=== PATIENT | female | born 1955 | race Caucasian/White ===

== ENCOUNTER 2018-12-15 09:14 | Inpatient (IN) | payer OTHER ==
[2018-12-15 09:59] VITALS: BMI 31.1
--- NOTE | 2018-12-15 11:25 | HP ---
CIWA Score Nausea/Vomitin-Mild Nausea/No Vomiting Muscle Tremors: 1-None Visible, but [place] Anxiety: 4-Mod. Anxious/Guarded Agitation: 4-Moderately Restless Paroxysmal Sweats: No Perspiration Orientation: 0-Oriented Tacttile Disturbances: 0-None Auditory Disturbances: 0-None Visual Disturbances: 0-None Headache: 0-None Present CIWA-Ar Total Score: 10 - Admission Criteria OASAS Guidelines: Admission for Medically Managed Detox: Requires at least one of the followin. CIWA greater than 12 2. Seizures within the past 24 hours 3. Delirium tremens within the past 24 hours 4. Hallucinations within the past 24 hours 5. Acute intervention needed for co occurring medical disorder 6. Acute intervention needed for co occurring psychiatric disorder 7. Severe withdrawal that cannot be handled at a lower level of care (continued vomiting, continued diarrhea, abnormal vital signs) requiring intravenous medication and/or fluids 8. Admission ROS [facility] - [facility] Allergies/Adverse Reactions: Allergies Allergy/AdvReac Type Severity Reaction Status Date / Time No Known Allergies Allergy Verified 12/15/18 09:36 History of Present Illness: Search Terms: elda sheriff, 1955 Search Date: 12/15/2018 11:15:28 AM The Drug Utilization Report below displays all of the controlled substance prescriptions, if any, that your patient has filled in the last twelve months. The information displayed on this report is compiled from pharmacy submissions to the Department, and accurately reflects the information as submitted by the pharmacies. This report was requested by: Linette Andre | Reference #: [id number] Others' Prescriptions Patient Name: Elda Sheriff Date: 1955 Address: [address] [place] [address] Sex: Female Rx Written Rx Dispensed Drug Quantity Days Supply Prescriber Name 12/04/2018 12/04/2018 clonazepam 2 mg tablet 90 30 Murphy Muniz MD 12/04/2018 12/04/2018 zolpidem tartrate 10 mg tablet 30 30 Murphy Muniz MD 10/31/2018 11/06/2018 clonazepam 2 mg tablet 90 30 Murphy Muniz MD 10/31/2018 11/06/2018 zolpidem tartrate 10 mg tablet 30 30 Murphy Muniz MD Patient Name: Elda Sheriff Date: 1955 Address: [address] [address] Sex: Female Rx Written Rx Dispensed Drug Quantity Days Supply Prescriber Name 10/03/2018 10/09/2018 clonazepam 2 mg tablet 90 30 Murphy Muniz MD 10/03/2018 10/09/2018 zolpidem tartrate 10 mg tablet 30 30 Murphy Muniz MD 09/05/2018 09/13/2018 clonazepam 2 mg tablet 90 30 Murphy Muniz MD 09/05/2018 09/13/2018 zolpidem tartrate 10 mg tablet 30 30 FurMurphy abbasi MD 08/03/2018 08/14/2018 clonazepam 2 mg tablet 90 30 Murphy Muniz MD 08/03/2018 08/14/2018 zolpidem tartrate 10 mg tablet 30 30 Murphy Muniz MD 07/06/2018 07/17/2018 clonazepam 2 mg tablet 90 30 Murphy Muniz MD 07/06/2018 07/17/2018 zolpidem tartrate 10 mg tablet 30 30 Murphy Muniz MD 06/19/2018 06/19/2018 clonazepam 2 mg tablet 90 30 Murphy Muniz MD 06/19/2018 06/19/2018 zolpidem tartrate 10 mg tablet 30 30 Murphy Muniz MD Patient Name: Elda Sheriff Date: 1955 Address: [address] [place] [address] Sex: Female Rx Written Rx Dispensed Drug Quantity Days Supply Prescriber Name 05/10/2018 05/22/2018 clonazepam 2 mg tablet 90 30 Murphy Muniz MD 05/10/2018 05/22/2018 zolpidem tartrate 10 mg tablet 15 25 Murphy Muniz MD Patient Name: Elda Sheriff Date: 1955 Address: [address] [address] Sex: Female Rx Written Rx Dispensed Drug Quantity Days Supply Prescriber Name 04/11/2018 04/24/2018 alprazolam 2 mg tablet 30 30 Murphy Muniz MD 04/11/2018 04/24/2018 clonazepam 2 mg tablet 90 30 Murphy Muniz MD 04/11/2018 04/24/2018 zolpidem tartrate 10 mg tablet 30 30 Murphy Muniz MD 03/09/2018 03/24/2018 alprazolam 2 mg tablet 30 30 FurerMurphy MD 03/09/2018 03/24/2018 clonazepam 2 mg tablet 90 30 FurerMurphy MD 03/09/2018 03/24/2018 zolpidem tartrate 10 mg tablet 30 30 Furer Murphy MD 02/07/2018 02/23/2018 clonazepam 2 mg tablet 90 30 FurerMurphy MD 02/07/2018 02/23/2018 alprazolam 2 mg tablet 60 30 FurerMurphy MD 02/07/2018 02/23/2018 zolpidem tartrate 10 mg tablet 30 30 Furer Murphy MD 02/14/2018 02/16/2018 oxycodone-acetaminophen 10-325 mg tab 15 8 Quang Hayden () 01/10/2018 01/25/2018 zolpidem tartrate 10 mg tablet 30 30 Furer Murphy MD 01/10/2018 01/25/2018 alprazolam 2 mg tablet 90 30 FurerMurphy MD 12/08/2017 12/27/2017 zolpidem tartrate 10 mg tablet 30 30 Furer Murphy MD 12/08/2017 12/27/2017 alprazolam 2 mg tablet 90 30 FurerMurphy MD * - Drugs marked with an asterisk are compound drugs. If the compound drug is made up of more than one controlled substance, then each controlled pt here requesting detox from bezo use , reports illicit xanax use 5 / day , w/ AH at times , had fall while intoxicated February 2018 . In MMTP " on & off for years " , current daily dose 170 mg @ [facility] , has been there x 8 mo , reports opiate use , latest 1 week ago . PMHX Lb injury " they said l1 " , jacobo knee meniscal tear , ambul w/ cane , asthma tobacco : 08/11 ppd denies other illicits or ETOH menopausal SHx : lives w/ and niece. Exam Limitations: Clinical Condition, Intoxication - Ebola screening Have you traveled outside of the country in the last 21 days: No Have you had contact with anyone from an Ebola affected area: No Do you have a fever: No - Review of Systems Constitutional: See HPI EENT: reports: Other (glasses , dentures upper) Respiratory: reports: No Symptoms reported Cardiac: reports: No Symptoms Reported GI: reports: No Symptoms Reported, Other (AMADEO) : reports: No Symptoms Reported Musculoskeletal: reports: See HPI, Back Pain Integumentary: reports: No Symptoms Reported Neuro: reports: Seizure (w/d seizure while incarcerated " years ago ") Endocrine: reports: No Symptoms Reported Psychiatric: reports: Orientated x3, Agitated, Anxious Patient History - Smoking Cessation Smoking history: Current every day smoker Have you smoked in the past 12 months: Yes Initiated information on smoking cessation: No - Substances abused Alprazolam (Xanax) Substance route: Oral Frequency: Daily Amount used: 10 Age of first use: 29 Date of last use: 12/14/18 Heroin Substance route: Injection Frequency: Daily Amount used: 58 BAGS Age of first use: 27 Family Disease History - Family Disease History Family History: Denies Admission Physical Exam [facility] - Vital Signs Vital Signs: Vital Signs - 24 hr 12/15/18 09:18 Temperature 98.1 F Pulse Rate 78 Respiratory 18 Rate Blood Pressure 134/97 - Physical General Appearance: Yes: Mild Distress HEENTM: Yes: EOMI, Hearing grossly Normal, Normocephalic, Muffled/Hoarse Voice, Other (upper dentures , poor dentition loser) Respiratory: Yes: Chest Non-Tender, Lungs Clear, Decreased Breath Sounds, No Respiratory Distress, No Accessory Muscle Use Neck: Yes: No masses,lesions,Nodules, Trachea in good position Cardiology: Yes: Regular Rhythm, Regular Rate, S1, S2 Abdominal: Yes: Non Tender, Soft Back: Yes: Normal Inspection Musculoskeletal: Yes: Joint Stiffness (jacobo knees), Joint swelling (jacobo knees), Other (ambulating w/ cane) Extremities: Yes: Normal Range of Motion, Non-Tender Neurological: Yes: Fully Oriented, Motor Strength 5/5, Other (drowsy , falls asleep at times, easily awakened by verbal stimuli) Integumentary: Yes: Warm - Diagnostic (1) Sedative, hypnotic or anxiolytic abuse Current Visit: Yes Status: Acute (2) Opioid dependence on agonist therapy Current Visit: Yes Status: Acute (3) Nicotine dependence Current Visit: Yes Status: Chronic Qualifiers: Nicotine product type: cigarettes Breathalyzer - Breathalyzer Breathalyzer: 0 Urine Drug Screen - Test Device Lot number: [id number] Expiration date: 09/07/20 - Control Is test valid?: Yes - Results Drug screen NEGATIVE: No Urine drug screen results: MOP-Opiates, OXY-Oxycodone, MTD-Methadone, BZO- Benzodiazepines Inpatient Rehab Admission - Rehab Decision to Admit Inpatient rehab admission?: No
[2018-12-15] MEDS ORDERED: NICOTINE POLACRILEX 2 MG GUM BUC PRN (11:53)
[2018-12-15] MEDS ORDERED: DICYCLOMINE HCL 10 MG CAPSULE PO PRN (11:53)
[2018-12-15] MEDS ORDERED: chlordiazePOXIDE HCL 25 MG CAPSULE PO PRN (11:53)
[2018-12-15] MEDS ORDERED: IBUPROFEN 400 MG TABLET (FP) PO PRN (11:53)
[2018-12-15] MEDS ORDERED: MAG HYDROX/AL HYDROX/SIMETH 30 ML UNIT-DOSE CUP PO PRN (11:53)
[2018-12-15] MEDS ORDERED: MAGNESIUM CITRATE 300 ML BOTTLE PO PRN (11:53)
[2018-12-15] MEDS ORDERED: ACETAMINOPHEN 325 MG TABLET (FP) PO PRN (11:53)
[2018-12-15] MEDS ORDERED: MENTHOL/PHENOL 1 EACH UD MM PRN (11:53)
[2018-12-15] MEDS ORDERED: MAGNESIUM HYDROX 2400MG/30ML ORAL SUSPENSION 30 ML CUP PO PRN (11:53)
[2018-12-15] MEDS ORDERED: ALBUTEROL SO4 0.083% IH SOL 2.5 MG/3 ML VIAL.NEB. NEB PRN (11:55)
[2018-12-15] MEDS: NICOTINE 7 MG/24 HOURS TOPICAL PATCH TD SCH (14:16)
[2018-12-15] MEDS: chlordiazePOXIDE HCL 25 MG CAPSULE PO SCH ×2 (17:00→22:45)
[2018-12-15 17:03] LABS: HEMATOCRIT 46.3 % (32.4-45.2); HEMOGLOBIN 15.1 GM/dL (10.7-15.3); MCH 31.3 pg (25.7-33.7); MCHC 32.5 g/dl (32.0-36.0); MEAN CELL VOLUME 96.4 fl (80-96); MEAN PLT VOLUME 8.7 fl (7.5-11.1); PLATELET COUNT 139 K/MM3 (134-434); RDW 13.2 % (11.6-15.6); WHITE BLOOD COUNT 8.4 K/mm3 (4.0-10.0)
[2018-12-15 17:22] LABS: ALBUMIN 3.7 g/dl (3.4-5.0); BILIRUBIN,TOTAL 0.6 mg/dL (0.2-1); CALCIUM 9.2 mg/dL (8.5-10.1); POTASSIUM 4.4 mmol/L (3.5-5.1); TOT PROT 8.2 g/dl (6.4-8.2)
[2018-12-15] MEDS: hydrOXYzine PAMOATE 25 MG CAPSULE (FP) PO PRN (19:15)
[2018-12-15] MEDS ORDERED: [UNRECOGNIZED DRUG - OTHER] TP SCH (22:00)
[2018-12-15] MEDS: THIAMINE HCL 100 MG TABLET (FP) PO SCH (22:45)
[2018-12-15] MEDS: MELATONIN 5 MG TABLETS PO PRN (22:45)
[2018-12-16] MEDS: chlordiazePOXIDE HCL 25 MG CAPSULE PO SCH ×4 (06:08→22:51)
[2018-12-16] MEDS ORDERED: cloNIDine HCL 0.1 MG TABLET PO ONE (06:39)
--- NOTE | 2018-12-16 06:44 | PN ---
S Progress Note Note: Patient's blood pressure is B/P 195/96. Patient is asymptomatic Vital Signs Temperature 96.8 F L 12/16/18 06:39 Pulse Rate 92 H 12/16/18 06:39 Respiratory Rate 20 12/16/18 06:39 Blood Pressure 195/96 H 12/16/18 06:39 O2 Sat by Pulse Oximetry (%) Action: Clonidine 0.1mg tablet oral ordered
[2018-12-16] MEDS ORDERED: METHADONE HCL 10 MG TABLET PO SCH (06:45)
[2018-12-16] MEDS ORDERED: METHADONE HCL 10 MG TABLET ONE ×2 (06:46→06:56)
[2018-12-16] MEDS ORDERED: METHADONE HCL 40 MG DISPERSABLE TABLET ONE ×2 (06:47→06:56)
[2018-12-16] MEDS: METHADONE 160 MG, METHADONE 10 MG PO SCH (06:49)
[2018-12-16] MEDS ORDERED: PRENATAL VITAMINS W/ FOLIC ACID TABLET (FP) PO SCH (10:00)
--- NOTE | 2018-12-16 10:12 | CONSULT ---
[facility] Psychiatric Consult - Data Date of interview: 12/16/18 Admission source: [facility] Identifying data: First admission to [facility] for this 63 y/o female self-referred for detoxification (xanax, heroin). Interviewed on . Patient is , a mother of three, domiciled, unemployed (disabled) and supported on SSI benefits. Substance Abuse History: Discussed with the patient.She confirmed content of current [facility] report as follows : Smoking history: Current every day smoker. Have you smoked in the past 12 months: Yes. Initiated information on smoking cessation: No. Substances abused. Alprazolam (Xanax). Substance route: Oral. Frequency: Daily. Amount used: 10. Age of first use: 29. Date of last use: 12/14/18. Heroin. Substance route: Injection. Frequency: Daily. Amount used: 58 BAGS. Age of first use: 27 Medical History: Remarkable for obesity and bilateral meniscal tears. Patient ambulates with a cane. Psychiatric History: No reported history of psychiatric hospitalizations. Patient endorses the diagnosis of schizoaffective disorder. Sees a private psychiatrist in [facility] for medication management (review of pharmacy activity shows scripts for zoloft, klonopin, zolpidem, elavil, abilify issued on 12/04/18 at [facility]). Ms Sheriff declares that she takes ONLY clonazepam from that regimen (while, at the same time, she continues to buy xanax in the streets as per self-report). Patient denies history of suicide attempts. Physical/Sexual Abuse/Trauma History: Patient denies. Additional Comment: Urine drug screen results: MOP-Opiates, OXY-Oxycodone, MTD- Methadone, BZO-Benzodiazepines. Noted. Mental Status Exam - Mental Status Exam Alert and Oriented to: Time, Place, Person Cognitive Function: Good Patient Appearance: Well Groomed (obese) Mood: Angry (about not getting clonazepam), Anxious, Irritable Affect: Mood Congruent, Labile Patient Behavior: Inappropriate (at times due to medication-seeking behavior), Cooperative Speech Pattern: Clear Voice Loudness: Normal Thought Process: Goal Oriented Thought Disorder: Not Present Hallucinations: Denies Suicidal Ideation: Denies Homicidal Ideation: Denies Insight/Judgement: Poor Sleep: Fair Appetite: Good Gait/Station: Other (walks with a cane) Psychiatric Findings - Problem List ([place] 1, 2,3) (1) Opioid dependence on agonist therapy Current Visit: Yes Status: Chronic (2) Sedative, hypnotic or anxiolytic abuse Current Visit: Yes Status: Chronic (3) Nicotine dependence Current Visit: Yes Status: Chronic Qualifiers: Nicotine product type: cigarettes (4) Substance induced mood disorder Current Visit: Yes Status: Chronic (5) History of schizoaffective disorder Current Visit: Yes Status: Chronic (6) Insomnia Current Visit: Yes Status: Chronic (7) Non-compliance Current Visit: Yes Status: Chronic - Initial Treatment Plan Initial Treatment Plan: Psychoeducation. Sleep hygiene. Detoxification. Patient DECLINES to resume zoloft + abilify + elavil (not taken for more than 4 weeks as per self-report). She WANTS KLONOPIN ONLY. Firm limit-setting. NA meetings. Insomnia is addressed with melatonin at bedtime. Side effects/benefits discussed with patient. Verbal consent given to MD. Santacruz.
--- NOTE | 2018-12-16 12:24 | PN ---
S CIWA - CIWA Score Nausea/Vomitin-No Nausea/No Vomiting Muscle Tremors: 3 Anxiety: 3 Agitation: 1-Slight > Activity Paroxysmal Sweats: 4-Forehead w/Sweat Beads Orientation: 0-Oriented Tacttile Disturbances: 0-None Auditory Disturbances: 0-None Visual Disturbances: 0-None Headache: 2-Mild CIWA-Ar Total Score: 13 [facility] Progress Note (SOAP) Subjective: c/o sweats, anxiety, headache, body aches, and tremor. Objective: 12/16/18 12:22 Vital Signs 12/16/18 12/16/18 12/16/18 05:36 06:39 10:01 Temperature 96.8 F L 96.8 F L 98.1 F Pulse Rate 92 H 92 H 80 Respiratory 20 20 18 Rate Blood Pressure 195/96 H 195/96 H 130/75 Lab Results WBC 8.4 K/mm3 (4.0-10.0) 12/15/18 12:30 RBC 4.80 M/mm3 (3.60-5.2) 12/15/18 12:30 Hgb 15.1 GM/dL (10.7-15.3) 12/15/18 12:30 Hct 46.3 % (32.4-45.2) H 12/15/18 12:30 MCV 96.4 fl (80-96) H 12/15/18 12:30 MCHC 32.5 g/dl (32.0-36.0) 12/15/18 12:30 RDW 13.2 % (11.6-15.6) 12/15/18 12:30 Plt Count 139 K/MM3 (134-434) 12/15/18 12:30 Sodium 136 mmol/L (136-145) 12/15/18 12:30 Potassium 4.4 mmol/L (3.5-5.1) 12/15/18 12:30 Chloride 103 mmol/L (98-107) 12/15/18 12:30 Carbon Dioxide 27 mmol/L (21-32) 12/15/18 12:30 Anion Gap 6 MMOL/L (8-16) L 12/15/18 12:30 BUN 13 mg/dL (7-18) 12/15/18 12:30 Creatinine 1.0 mg/dL (0.55-1.3) 12/15/18 12:30 Random Glucose 88 mg/dL (74-106) 12/15/18 12:30 Calcium 9.2 mg/dL (8.5-10.1) 12/15/18 12:30 Labs noted. Assessment: 12/16/18 12:23 AOX3, in no respiratory distress withdrawal symptoms. Plan: continue detox.
[2018-12-16] MEDS: NICOTINE 7 MG/24 HOURS TOPICAL PATCH TD SCH (14:17)
[2018-12-16] MEDS: hydrOXYzine PAMOATE 25 MG CAPSULE (FP) PO PRN (18:44)
[2018-12-16] MEDS: ACETAMINOPHEN 325 MG TABLET (FP) PO PRN (18:44)
[2018-12-16] MEDS: THIAMINE HCL 100 MG TABLET (FP) PO SCH (22:51)
[2018-12-16] MEDS: MELATONIN 5 MG TABLETS PO PRN (22:52)
[2018-12-17] MEDS: hydrOXYzine PAMOATE 25 MG CAPSULE (FP) PO PRN (02:50)
[2018-12-17] MEDS: ACETAMINOPHEN 325 MG TABLET (FP) PO PRN (02:51)
[2018-12-17] MEDS ORDERED: METHADONE HCL 40 MG DISPERSABLE TABLET ONE (04:36)
[2018-12-17] MEDS ORDERED: METHADONE HCL 10 MG TABLET ONE (04:36)
[2018-12-17] MEDS: METHADONE 160 MG, METHADONE 10 MG PO SCH (06:07)
[2018-12-17] MEDS: chlordiazePOXIDE HCL 25 MG CAPSULE PO SCH (06:07)
[2018-12-17 11:06] VITALS: BP 152/95; PULSE 73; TEMP 98.1
--- NOTE | 2018-12-17 12:31 | DS ---
[facility] Detox Discharge Summary Admission Date: 12/15/18 Discharge Date: 12/17/18 - History Present History: Opioid Dependence, Sedative Dependence, MMTP Additional Comments: Patient demanded to leave AMA stating she is feeling fine and doesn't need any further detox. Patient stated she will see her PCP and Psychiatrist tomorrow. Patient refused to complete detox despite encouragement from program writer and nursing staff. Patient instructed to call 911 [place] if feeling sick/withdrawal symptoms and to see her PCP within 3 days. Patient is stable upon leaving AMA. Pertinent Past History: Nicotine dependence Sedative dependence Opioid dependence on agonist - Physical Exam Results Vital Signs: Vital Signs Temperature 98.1 F 12/17/18 11:05 Pulse Rate 73 12/17/18 11:05 Respiratory Rate 18 12/17/18 11:05 Blood Pressure 152/95 12/17/18 11:05 O2 Sat by Pulse Oximetry (%) Pertinent Admission Physical Exam Findings: Withdrawal symptoms Laboratory Tests 12/15/18 12/15/18 12/15/18 10:47 12:30 12:30 WBC 8.4 RBC 4.80 Hgb 15.1 Hct 46.3 H MCV 96.4 H MCH 31.3 MCHC 32.5 RDW 13.2 Plt Count 139 MPV 8.7 Sodium 136 Potassium 4.4 Chloride 103 Carbon Dioxide 27 Anion Gap 6 L BUN 13 Creatinine 1.0 Est GFR (CKD-EPI)AfAm 70.42 Est GFR (CKD-EPI)NonAf 60.76 Random Glucose 88 Calcium 9.2 Total Bilirubin 0.6 AST 27 ALT 24 Alkaline Phosphatase 107 Total Protein 8.2 Albumin 3.7 POC Urine HCG, Qual Negative RPR Titer 12/15/18 12:30 WBC RBC Hgb Hct MCV MCH MCHC RDW Plt Count MPV Sodium Potassium Chloride Carbon Dioxide Anion Gap BUN Creatinine Est GFR (CKD-EPI)AfAm Est GFR (CKD-EPI)NonAf Random Glucose Calcium Total Bilirubin AST ALT Alkaline Phosphatase Total Protein Albumin POC Urine HCG, Qual RPR Titer Nonreactive Labs reviewed - Medication Discharge Medications: Ambulatory Orders Albuterol Sulfate Inhaler - [Ventolin Hfa Inhaler -] 1 - 2 inh PO QID PRN Amitriptyline HCl [Elavil -] 100 mg PO HS 12/15/18 Aripiprazole [Abilify -] 10 mg PO DAILY 12/15/18 Ciclopirox/Skin Cleanser No.28 [Ciclodan 0.77% Cream Kit] 544 gm TP BID Naproxen [Naprosyn] 500 mg PO BID 12/15/18 Olanzapine 10 mg PO HS 12/15/18 Sertraline HCl 100 mg PO DAILY 12/15/18 Zolpidem Tartrate 10 mg PO HS 12/15/18 - Diagnosis (1) Nicotine dependence Status: Chronic Qualifiers: Nicotine product type: cigarettes (2) Opioid dependence on agonist therapy Status: Chronic (3) Sedative, hypnotic or anxiolytic abuse Status: Acute - AMA Did Patient Leave Against Medical Advice: Yes (Instructed to call 911 [place] if feeling sick/withdrawal symptoms)
[2018-12-17] MEDS ORDERED: chlordiazePOXIDE HCL 10 MG CAPSULE PO SCH (17:00)
[2018-12-17] MEDS ORDERED: chlordiazePOXIDE HCL 10 MG CAPSULE PO PRN (17:00)
[2018-12-18] MEDS ORDERED: chlordiazePOXIDE HCL 10 MG CAPSULE PO SCH (17:00)
== END 2018-12-17 10:32 | disposition left against medical advice (07) | DRG 770 ==
LOC: YASAS 09:14 → Y6N 12:58
PROVIDERS: ADMIT Surgery; ATTEND Surgery
PROC: HZ2ZZZZ Detoxification Services for Substance Abuse Treatment (ICD-10-PCS; principal; 2018-12-15)
DX: F11.23 Opioid dependence with withdrawal (principal); F13.230 Sedative, hypnotic or anxiolytic dependence with withdrawal, uncomplicated; F17.210 Nicotine dependence, cigarettes, uncomplicated; F19.24 Other psychoactive substance dependence with psychoactive substance-induced mood disorder; G47.00 Insomnia, unspecified; E66.9 Obesity, unspecified; Z68.31 Body mass index [BMI] 31.0-31.9, adult; R26.2 Difficulty in walking, not elsewhere classified; Z99.89 Dependence on other enabling machines and devices; Z91.14 Patient's other noncompliance with medication regimen
CPT/HCPCS: 36415; 80053; 81025; 85027; 86593; J0735